=== PATIENT | female | born 1960 | race Caucasian/White ===

== ENCOUNTER → 2023-08-19 12:00 | Outpatient (REF) | payer OTHER, SELFPAY | LOC: DHSLP 12:00 | PROVIDERS: ATTENDING PHYSICIAN Internal Medicine; FAMILY PHYSICIAN Family Medicine | DX: G47.33 Obstructive sleep apnea (adult) (pediatric) (principal) | CPT/HCPCS: 95806 ==

== ENCOUNTER → 2023-10-15 15:20 | Outpatient (REF) | payer OTHER, SELFPAY | LOC: HWWDC 15:20 | PROVIDERS: ATTENDING PHYSICIAN Obstetrics & Gynecology Gynecology; FAMILY PHYSICIAN Family Medicine | DX: Z12.31 Encounter for screening mammogram for malignant neoplasm of breast (principal) | CPT/HCPCS: 77063; 77067 ==

== ENCOUNTER 2023-11-18 08:33 | Outpatient (RCR) | payer OTHER, SELFPAY | END 2023-11-18 23:59 | disposition home or self-care (01) | LOC: RPT 08:33 | PROVIDERS: ATTENDING PHYSICIAN Orthopaedic Surgery; FAMILY PHYSICIAN Family Medicine | DX: Z47.1 Aftercare following joint replacement surgery (principal); Z96.652 Presence of left artificial knee joint; Z73.6 Limitation of activities due to disability | CPT/HCPCS: 97110; 97161; 97535 ==

== ENCOUNTER 2023-12-16 13:56 | Outpatient (RCR) | payer OTHER, SELFPAY | END 2023-12-16 23:59 | disposition home or self-care (01) | LOC: RPT 13:56 | PROVIDERS: ATTENDING PHYSICIAN Orthopaedic Surgery; FAMILY PHYSICIAN Family Medicine | DX: Z47.1 Aftercare following joint replacement surgery (principal); Z73.6 Limitation of activities due to disability; M25.562 Pain in left knee; R26.89 Other abnormalities of gait and mobility; Z96.652 Presence of left artificial knee joint | CPT/HCPCS: 97010; 97110; 97116; 97140; 97530; 97535 ==

== ENCOUNTER 2024-01-18 13:00 | Outpatient (RCR) | payer OTHER, SELFPAY | END 2024-01-18 23:59 | disposition home or self-care (01) | LOC: RPT 13:00 | PROVIDERS: ATTENDING PHYSICIAN Orthopaedic Surgery; FAMILY PHYSICIAN Family Medicine | DX: Z47.1 Aftercare following joint replacement surgery (principal); Z96.652 Presence of left artificial knee joint; M25.562 Pain in left knee; Z73.6 Limitation of activities due to disability; R26.89 Other abnormalities of gait and mobility | CPT/HCPCS: 97010; 97110; 97140; 97530 ==

== ENCOUNTER → 2024-01-19 11:19 | Outpatient (REF) | payer OTHER, SELFPAY | LOC: RAD 11:19 | PROVIDERS: ATTENDING PHYSICIAN Orthopaedic Surgery; FAMILY PHYSICIAN Family Medicine | DX: M79.662 Pain in left lower leg (principal) | CPT/HCPCS: 93971 ==

== ENCOUNTER 2024-02-04 10:57 | Outpatient (RCR) | payer OTHER, SELFPAY | END 2024-02-04 23:59 | disposition home or self-care (01) | LOC: RPT 10:57 | PROVIDERS: ATTENDING PHYSICIAN Orthopaedic Surgery; FAMILY PHYSICIAN Family Medicine | DX: Z47.1 Aftercare following joint replacement surgery (principal); Z73.6 Limitation of activities due to disability; M25.562 Pain in left knee; R26.89 Other abnormalities of gait and mobility; Z96.652 Presence of left artificial knee joint | CPT/HCPCS: 97110; 97530; 97535 ==

== ENCOUNTER 2024-02-24 10:01 | Outpatient (RCR) | payer OTHER, SELFPAY | END 2024-02-24 23:59 | disposition home or self-care (01) | LOC: RPT 10:01 | PROVIDERS: ATTENDING PHYSICIAN Orthopaedic Surgery; FAMILY PHYSICIAN Family Medicine | DX: Z47.1 Aftercare following joint replacement surgery (principal); Z73.6 Limitation of activities due to disability; M25.562 Pain in left knee; R26.89 Other abnormalities of gait and mobility; R26.2 Difficulty in walking, not elsewhere classified; Z96.652 Presence of left artificial knee joint | CPT/HCPCS: 97110 ==

== ENCOUNTER → 2024-04-10 10:25 | Outpatient (REF) | payer OTHER, SELFPAY | LOC: RAD 10:25 | PROVIDERS: ATTENDING PHYSICIAN Orthopaedic Surgery; FAMILY PHYSICIAN Family Medicine | DX: I82.412 Acute embolism and thrombosis of left femoral vein (principal); Z79.01 Long term (current) use of anticoagulants | CPT/HCPCS: 93971 ==

== ENCOUNTER → 2024-10-16 11:46 | Outpatient (REF) | payer OTHER, SELFPAY | LOC: HWWDC 11:46 | PROVIDERS: ATTENDING PHYSICIAN Obstetrics & Gynecology Gynecology; FAMILY PHYSICIAN Family Medicine | DX: Z12.31 Encounter for screening mammogram for malignant neoplasm of breast (principal) | CPT/HCPCS: 77063; 77067 ==

== ENCOUNTER → 2025-01-25 10:23 | Outpatient (REF) | payer OTHER, SELFPAY | LOC: RAD 10:23 | PROVIDERS: ATTENDING PHYSICIAN Family Medicine | DX: Z78.0 Asymptomatic menopausal state (principal) | CPT/HCPCS: 77080 ==

== ENCOUNTER 2025-03-06 06:22 | Day surgery (SDC) | payer MEDICARE, SELFPAY | END 2025-03-06 13:07 | disposition home or self-care (01) | LOC: GI 06:22 | PROVIDERS: ATTENDING PHYSICIAN Internal Medicine Gastroenterology | DX: Z12.11 Encounter for screening for malignant neoplasm of colon (principal); K57.30 Diverticulosis of large intestine without perforation or abscess without bleeding; K64.8 Other hemorrhoids; D12.5 Benign neoplasm of sigmoid colon; K63.5 Polyp of colon; Z83.719 Family history of colon polyps, unspecified | CPT/HCPCS: 45385; 45380; 88305 ==

== ENCOUNTER → 2025-04-16 14:25 | Outpatient (REF) | payer MEDICARE, OTHER, SELFPAY | LOC: RAD 14:25 | PROVIDERS: ATTENDING PHYSICIAN Nurse Practitioner; FAMILY PHYSICIAN Family Medicine | DX: M79.89 Other specified soft tissue disorders (principal); I82.412 Acute embolism and thrombosis of left femoral vein | CPT/HCPCS: 93971 ==

== ENCOUNTER 2025-04-16 16:04 | Emergency (ER) | payer OTHER, SELFPAY ==
[2025-04-16 16:14] VITALS: BP 119/58
--- NOTE | 2025-04-16 17:49 | ED.GENMED ---
History of Present Illness
General
Chief Complaint: DVT/Possible Blood Clot
Time Seen by Provider: 04/16/25 17:17
History of Present Illness
History of Present Illness:
65-year-old female presents to the emergency department for evaluation of left lower extremity swelling for the past 3 weeks. She reports an aching discomfort when ambulating but denies any pain at rest. Denies any paresthesias. Has a prior
history of DVT that occurred last year after a knee replacement. She is not currently on anticoagulants. She was sent for outpatient DVT study by her primary care physician that returned positive for an extensive clot from the common femoral
through proximal calf veins. Denies chest pain or shortness of breath
Review of Systems
Review of Systems
Allergies reviewed?: Yes
All Other Systems: ROS reviewed and negative except as documented in HPI and ROS
Phy Exam
Physical Exam
Physical Exam:
GEN: Well appearing, NAD, WDWN
HEENT: Oral mucosa moist, no scleral icterus
Cardiac: Regular rate
Lung: No respiratory distress, no tachypnea
MSK: Diffuse edema of the left lower extremity from the thigh through the ankle, left dorsalis pedis and posterior tibialis pulses are strong and palpable. Sensation intact to all distributions. Capillary refill less than 2 seconds
Skin: Good color, no pallor or jaundice, no rashes
Neuro: AO x3, moves all extremities freely
Psych: Calm, cooperative
Course
Orders/Labs/Results
Orders:
Orders
04/16/25 17:49
Apixaban [Eliquis] 10 mg PO NOW STA
Vital Signs
Initial and Last Documented VS:
Initial Vital Signs
Temp Pulse Resp BP Pulse Ox
98.1 F 74 16 119/58 98
04/16/25 16:14 04/16/25 16:14 04/16/25 16:14 04/16/25 16:14 04/16/25 16:14
Last Documented Vital Signs
Temp Pulse Resp BP Pulse Ox
98.9 F 74 16 118/54 96
04/16/25 18:21 04/16/25 18:21 04/16/25 16:14 04/16/25 18:21 04/16/25 18:21
MDM/Problems Addressed
MDM/Problems Addressed:
Patient has no clinical signs of imminent arterial vascular compromise, with strong palpable pulses and intact capillary refill. Case reviewed with attending physician Dr. Pulliam who agrees there is no indication for vascular surgery consultation
as thrombolysis or thrombectomy is not indicated given lack of arterial compromise. Coincidentally the patient had a similar appearing DVT by imaging last year. Will start on oral anticoagulants. No clinical signs or symptoms of PE
*Pulse Oximetry
SaO2: 98
Oxygen Mode of Delivery: Room air
Patient hypoxic: no
*Critical Care Note
Total Time (30-74mins, 75-104mins- exclusive of procedures): Not Applicable
ED Attending Note
-
Portions of this chart may have been created with voice recognition software.� Occasional wrong word or��sound alike� substitutions may have occurred due to the inherent limitations of voice recognition software.
Discharge Plan
Departure
Patient Disposition: Home (Routine Discharge)
Date of Disposition: 04/16/25
Time of Disposition: 17:49
Patient with high blood pressure during this ER visit?: No
Discharge Problem:
Acute deep vein thrombosis (DVT) of left lower extremity
Instructions: Deep Vein Thrombosis (Blood Clots in the Legs) (DC)
Prescriptions:
New
Eliquis 5 mg tablet
5 mg PO BID Qty: 74 0RF
Rx Instructions:
10mg PO BID x 7d then 5mg PO bid
Referrals:
Aline Morgan DO [Family Provider, Family Practice]
Interventions
Interventions:
*Risk Screen - Suicide Last Done: 04/16/25 16:14
*General Assessment Last Done: 04/16/25 18:17
*Neglect/Abuse Screening Last Done: 04/16/25 16:14
*ED- Fall Risk Assessment Last Done: 04/16/25 18:17
*ED COVID-19 Vaccine History Last Done: 04/16/25 18:17
*ED Influenza Vaccine History Last Done: 04/16/25 18:17
*Nursing Disposition Last Done: 04/16/25 18:27
ED- Cardiac Assessment Last Done: 04/16/25 18:17
ED- Pulmonary Assessment Last Done: 04/16/25 18:17
ED-Peripheral Vascular Assessment Last Done: 04/16/25 18:17
ED-Skin Assessment Last Done: 04/16/25 18:17
Discharge Date and Time
Discharge Date/Time: 04/16/25 18:29
Print Language: UKRAINIAN
[2025-04-16 18:17] VITALS: BMI 29.0
[2025-04-16 18:21] VITALS: BP 118/54
[2025-04-16] MEDS: ELIQUIS 10 MG PO (18:21)
== END 2025-04-16 18:29 | disposition home or self-care (01) ==
LOC: EMR 16:04
PROVIDERS: EMERGENCY PHYSICIAN Emergency Medicine; FAMILY PHYSICIAN Family Medicine
DX: I82.4Z2 Acute embolism and thrombosis of unspecified deep veins of left distal lower extremity (principal); Z86.718 Personal history of other venous thrombosis and embolism; Z96.659 Presence of unspecified artificial knee joint
CPT/HCPCS: 99282